=== PATIENT | female | born 1965 | race Caucasian/White ===

== ENCOUNTER → 2020-04-28 | Outpatient (CLI) | payer BC, OTHER | LOC: SJCVCIMAG 11:16 | PROVIDERS: ATTEND Internal Medicine | DX: I87.2 Venous insufficiency (chronic) (peripheral) (principal) ==

== ENCOUNTER → 2020-05-26 | Outpatient (CLI) | payer BC, OTHER ==
[~2020-05-26] VITALS: Ht 165.1 cm; Wt 120.2 kg
[~2020-05-26] MED LIST: BACLOFEN 10MG T10 MG PO; BYSTOLIC10 MG PO; CELEBREX 200 M200 M1 PO; CHANTIX0.5 MG PO; CIFEREX 3,7751 EACH PO; DEMADEX20 MG PO; KLOR-CON20 ME1 PO; LISINOPRIL2.5 MG PO; PRAVASTATIN SOD80 MG PO; TRAMADOL100 MG PO; ZOLOFT100 MG PO
[2020-05-26 11:41] LABS: HEMATOCRIT 43.4 % (37.0-47.0); HEMOGLOBIN 14.6 gm/dL (12.0-15.0); MCHC 33.7 g/dL (28.0-37.0); MCV 89.2 fL (80.0-100.0); RBC 4.87 mil/uL (4.20-5.00); RDW 14.3 % (10.5-14.5); WBC 10.5 thou/uL (4.0-11.0)
[2020-05-26 11:43] VITALS: BP 109/44
[2020-05-26 12:56] LABS: CALCIUM 8.9 mg/dL (8.5-10.1); CREATININE 1.2 mg/dL (0.6-1.0); POTASSIUM 4.2 mmol/L (3.5-5.1)
== END | disposition home or self-care (01) ==
LOC: CATH 10:45
PROVIDERS: ATTEND Nuclear Medicine Nuclear Cardiology
DX: I87.2 Venous insufficiency (chronic) (peripheral) (principal); I87.1 Compression of vein; R22.43 Localized swelling, mass and lump, lower limb, bilateral; M79.605 Pain in left leg; M79.604 Pain in right leg; I10 Essential (primary) hypertension; E78.5 Hyperlipidemia, unspecified; I73.9 Peripheral vascular disease, unspecified; K21.9 Gastro-esophageal reflux disease without esophagitis; E66.09 Other obesity due to excess calories; F17.210 Nicotine dependence, cigarettes, uncomplicated; Z98.890 Other specified postprocedural states; Z79.899 Other long term (current) drug therapy; Z90.711 Acquired absence of uterus with remaining cervical stump; Z88.8 Allergy status to other drugs, medicaments and biological substances

== ENCOUNTER → 2020-06-17 | Outpatient (CLI) | payer BC, OTHER ==
[~2020-06-17] VITALS: Ht 165.1 cm; Wt 120.2 kg
[2020-06-17 12:31] VITALS: BP 103/55
== END | disposition home or self-care (01) ==
LOC: CATH 06-14 09:29
PROVIDERS: ATTEND Nuclear Medicine Nuclear Cardiology
DX: I87.323 Chronic venous hypertension (idiopathic) with inflammation of bilateral lower extremity (principal); R22.43 Localized swelling, mass and lump, lower limb, bilateral; M79.604 Pain in right leg; M79.605 Pain in left leg; I11.0 Hypertensive heart disease with heart failure; I50.9 Heart failure, unspecified; E78.00 Pure hypercholesterolemia, unspecified; E78.5 Hyperlipidemia, unspecified; K21.9 Gastro-esophageal reflux disease without esophagitis; I73.9 Peripheral vascular disease, unspecified; F17.210 Nicotine dependence, cigarettes, uncomplicated; E66.09 Other obesity due to excess calories; Z98.890 Other specified postprocedural states; Z79.899 Other long term (current) drug therapy; Z90.711 Acquired absence of uterus with remaining cervical stump; Z88.8 Allergy status to other drugs, medicaments and biological substances

== ENCOUNTER → 2020-11-11 | Outpatient (CLI) | payer BC, OTHER | LOC: SJCVCIMAG 07:59 | PROVIDERS: ATTEND Internal Medicine | DX: M79.89 Other specified soft tissue disorders (principal); M79.604 Pain in right leg; M79.605 Pain in left leg; I87.2 Venous insufficiency (chronic) (peripheral); F17.200 Nicotine dependence, unspecified, uncomplicated; Z98.890 Other specified postprocedural states ==